=== PATIENT | male | born 1990 | race Caucasian/White ===

== ENCOUNTER 2020-09-03 19:05 | Emergency (ER) | payer MEDICAID ==
[2020-09-03] MEDS ORDERED: Bupivacaine 0.5% 30 ML SDV INJECT PRN (19:27)
[2020-09-03] MEDS ORDERED: Lidocaine 1% 30 ML SDV INJECT ONE (19:27)
[2020-09-03] MEDS ORDERED: Cephalexin 500 MG Cap PO ONE (20:54)
[2020-09-03] MEDS ORDERED: Take Home: Cephalexin 500 MG Cap, 4 Cap Pack PO ONE (20:59)
--- NOTE | 2020-09-03 21:00 | EDM.PDOC ---
ED HPI GENERAL MEDICAL PROBLEM - General Stated Complaint: hand laceration Time Seen by Provider: 09/03/20 19:10 Source of Information: Reports: Patient History Limitations: Reports: No Limitations - History of Present Illness INITIAL COMMENTS - FREE TEXT/NARRATIVE: Patient comes emergency department today with complaints of an injury to his right medial distal forearm. This patient just prior to arrival punched a mirror because he got an argument with his mother and lacerated the skin on his distal ventral aspect of his right medial distal forearm. This happened just prior to arrival. He is unsure when his last tetanus shot was. He denies any paresthesias to his hand. He denies any other injury. No COVID exposure no COVID symptoms right inner wrist Pain Score (Numeric/FACES): 4 - Related Data Allergies Allergy/AdvReac Type Severity Reaction Status Date / Time No Known Allergies Allergy Verified 09/03/20 21:18 Home Meds: Home Meds cephALEXin [Cephalexin] 500 mg PO QID #20 tablet 09/03/20 [Rx] ED ROS GENERAL - Review of Systems Review Of Systems: Comprehensive ROS is negative, except as noted in HPI. ED EXAM, SKIN/RASH Exam: See Below Exam Limited By: No Limitations General Appearance: Alert, WD/WN, No Apparent Distress Respiratory/Chest: No Respiratory Distress Cardiovascular: Normal Peripheral Pulses Peripheral Pulses: 2+: Radial (L), Radial (R) Extremities: No: Normal Inspection (Exam is isolated to the right forearm. On the volar surface of the right distal medial forearm there is a very complex laceration that extends into the subcutaneous tissue on the medial aspect. It starts of just the base of the palm and extends down to the more medial side of the forearm extending approximately 3-1/2 cm. There are multiple layers involving this as well as flaps. It does extend into the subcutaneous tissue and I can see the flexor tendon on the medial side that appears not to be damage. There is no foreign material or debris. The patient is able to flex and extend at the wrist and rotate appropriately. The CMS is intact appropriately to the right hand.) Neurological: Alert, Oriented Psychiatric: Normal Affect Skin: Warm, Dry, Intact, Normal Color ED SKIN PROCEDURES - Laceration/Wound Repair Right Medial Distal Wrist Appearance: Subcutaneous, Stellate, Irregular, Clean Distal NVT: Neuro & Vascular Intact, No Tendon Injury Anesthetic Type: Local Local Anesthesia - Lidocaine (Xylocaine): 1% Plain Local Anesthesia - Bupivicaine (Marcaine): 0.5% Plain Local Anesthetic Volume: Other (8) Skin Prep: Chlorhexidine (Hibiciens), Saline Saline Irrigation (cc's): 100 Exploration/Debridement/Repair: Wound Explored, In a Bloodless Field, Explored to Base, No Foreign Material Found, Multiple Flaps Aligned (Multiple flaps were aligned requiring approximately an hour of repair.) Closed with: Sutures Lac/Wound length In cm: 3.5 Suture Size: Other (Mixture of 4-0 Ethilon and 5-0 Ethilon sutures were placed in a single interrupted fashion with good skin approximation.) Suture Type: Interrupted Suture Size: 3-0 # of Sutures: 4 Repaired with: Vicryl Complications: No Progress/Comments: There were multiple flaps that were aligned in this very complex laceration. The edges were approximated as well as could due to the rather macerated nature of this laceration. Perfusion was appropriate throughout the entire to the laceration. Patient tolerated the procedure well. Course - Vital Signs Last Recorded V/S: Last Vital Signs Temp 97.2 F 09/03/20 19:05 Pulse 92 09/03/20 19:05 Resp 18 09/03/20 19:05 BP 124/84 09/03/20 21:00 Pulse Ox - Orders/Labs/Meds Meds: Medications Discontinued Medications Generic Name Dose Route Start Last Admin Trade Name Freq PRN Reason Stop Dose Admin Bupivacaine HCl 30 ml 09/03/20 19:27 09/03/20 20:00 Marcaine 0.5% INJECT 4 ml ASDIRECTED PRN Administration Other Cephalexin 1,000 mg 09/03/20 20:54 09/03/20 21:18 Keflex PO 09/03/20 20:55 1,000 mg ONETIME ONE Administration Cephalexin 1 packet 09/03/20 20:59 09/03/20 21:19 Take Home: Cephalexin 500 Mg, 4 Cap Pack PO 09/03/20 21:00 1 packet ONETIME ONE Administration Lidocaine HCl 30 ml 09/03/20 19:27 09/03/20 20:00 Xylocaine-Mpf 1% INJECT 09/03/20 19:28 4 ml ONETIME ONE Administration Departure - Departure Time of Disposition: 20:55 Disposition: Home, Self-Care 01 Clinical Impression: Wrist laceration Qualifiers: Encounter type: initial encounter Laterality: right Qualified Code(s): S61.511A - Laceration without foreign body of right wrist, initial encounter - Discharge Information Prescriptions: cephALEXin [Cephalexin] 500 mg PO QID #20 tablet Instructions: Sutures, [place], or Adhesive Wound Closure, [id number] Referrals: PCP,None [Primary Care Provider] - Forms: ED Department Discharge Additional Instructions: Cleanse twice daily with soap and water. Bacitracin and bandage until until healed. Watch for signs of infection. Cephalexin 1 capsule 4 times a day for the next 5 days. First dose given in the ED. Starter pack from the ED sent home and RX to [facility]. Sutures out in 10 days. If any concerns or complications see [facility]. [phone]. Return to the ED if new or worsening symptoms.
== END 2020-09-03 21:23 | disposition home or self-care (01) ==
LOC: VM.ED 19:05
DX: S61.511A Laceration without foreign body of right wrist, initial encounter (principal); W22.8XXA Striking against or struck by other objects, initial encounter
CPT/HCPCS: 12002; 99282-25; 99283; A9270-GY; J2001; J3490